=== PATIENT | female | born 1960 | race African-American/Black ===

== ENCOUNTER 2016-05-07 11:38 | Emergency (ER) | payer OTHER ==
[2016-05-07 11:56] LABS: ER CBC TAT 0 Hrs 07 Mins; HEMOGLOBIN 10.9 g/dL (12.0-16.0); MEAN CORPUS HGB CONC 31.3 g/dL (32.0-36.0); MEAN CORPUSCULAR HEMOGLOB 27.3 pg (26.0-34.0); MEAN PLATELET VOLUME 9.3 fL (9.2-13.0); RBC DISTRIBUTION WIDTH 15.6 % (12.0-16.0); RED CELL COUNT 3.99 10/6/uL (4.0-5.6); WHITE BLOOD CELLS 9.7 10/3/uL (4.5-10.5)
[2016-05-07 12:01] LABS: HEMATOCRIT 34.8 % (36.0-48.0); MANUAL DIFF YES %; MEAN CORPUSCULAR VOLUME 87.2 fL (80-100); PLATELET COUNT 80 10/3/uL (150-400)
[2016-05-07 12:13] LABS: ALBUMIN 2.4 G/DL (3.5-5.0); BUN (BLOOD UREA NITROGEN) 9 MG/DL (6-23); CHLORIDE, SERUM 100 MMOL/L (96-112); CO2 (CARBON DIOXIDE) 29 MMOL/L (24-34); CPK 60 U/L (0-200); CREATININE 1.13 MG/DL (0.55-1.02); GFR AFRICAN AMERICAN 64 ML/MIN (>=60); GFR NON AFRICAN AMERICAN 55 ML/MIN (>=60); POTASSIUM, SERUM 3.6 MMOL/L (3.5-5.3); SGPT(ALT) 30 U/L (5-65); SODIUM, SERUM 139 MMOL/L (135-148)
[2016-05-07 12:15] LABS: A/G RATIO 0.6 (0.7-1.9); ALKALINE PHOSPHATASE 78 U/L (45-117); CALCIUM, SERUM 7.6 MG/DL (8.5-10.4); GLOBULIN 4.1 G/DL (2.5-4.1); GLUCOSE, SERUM 161 MG/DL (60-99); SGOT(AST) 38 U/L (5-40); TOTAL BILIRUBIN 1.4 MG/DL (0-1.2); TOTAL PROTEIN 6.5 G/DL (6.0-8.5)
[2016-05-07 12:20] LABS: BAND NEUTROPHILS 25 %; EOSINOPHILS 1 %; ER DIFF TAT 0 Hrs 31 Mins; IMMATURE GRANS ABSOLUTE (CALC) 0.68 10/3/uL (0.0-0.11); LYMPHOCYTES 5 %; LYMPHOCYTES ABSOLUTE (CALC) 0.49 10/3/uL (0.67-4.30); METAMYELOCYTES 5 %; MYELOCYTES 2 %; NEUTROPHILS ABSOLUTE (CALC) 8.44 10/3/uL (2.02-8.40); PLATELET ESTIMATE DEC (ADEQUATE); SEGMENTED NEUTROPHIL (0) 62 %; TOTAL NUCLEATED CELLS 100
[2016-05-07 12:21] LABS: RBC MORPHOLOGY NORM (NORMAL)
[2016-05-07 14:15] LABS: ASCORBIC ACID (UR NOT ORDER) 40 (NEG); BILIRUBIN, URINE NEGATIVE (NEG); ER URINALYSIS TAT 0 Hrs 09 Mins; KETONE, URINE NEGATIVE (NEG); LEUKOCYTE ESTERASE(NOT OR NEG (NEG); NITRITE (URINE) NEG (NEG); WBC (NOT ORDERED) (RFLEX) 1 (0-5)
[2016-07-14] MEDS ORDERED: XARELTO20 MG PO (13:47)
== END 2016-05-07 15:29 | disposition home or self-care (01) ==
LOC: ER 11:38
PROVIDERS: Emergency Medicine
DX: D69.6 Thrombocytopenia, unspecified (principal); I10 Essential (primary) hypertension; E11.9 Type 2 diabetes mellitus without complications; T45.1X5A Adverse effect of antineoplastic and immunosuppressive drugs, initial encounter; Z87.891 Personal history of nicotine dependence; Z91.041 Radiographic dye allergy status
CPT/HCPCS: 71010; 80053; 81001; 82550; 83690; 85025; 96374; 96375; 99284; J1170; J2405

== ENCOUNTER 2016-05-09 02:48 | Emergency (ER) | payer OTHER ==
[2016-05-09 03:04] LABS: BASOPHILS 0.2 %; BASOPHILS ABSOLUTE 0.01 10/3/uL (0.0-0.16); EOSINOPHILS 1.7 %; EOSINOPHILS ABSOLUTE 0.07 10/3/uL (0.0-0.53); ER CBC TAT 0 Hrs 07 MinsNP; HEMATOCRIT 36.4 % (36.0-48.0); HEMOGLOBIN 11.8 g/dL (12.0-16.0); IMMATURE GRANULOCYTES 1.5 %; IMMATURE GRANULOCYTES ABSOLUTE 0.06 10/3/uL (0.0-0.11); LYMPHOCYTES 5.9 %; LYMPHOCYTES ABSOLUTE 0.24 10/3/uL (0.67-4.30); MANUAL DIFF NO %; MEAN CORPUS HGB CONC 32.4 g/dL (32.0-36.0); MEAN CORPUSCULAR HEMOGLOB 27.9 pg (26.0-34.0); MEAN CORPUSCULAR VOLUME 86.1 fL (80-100); MEAN PLATELET VOLUME 10.6 fL (9.2-13.0); MONOCYTES 0.7 %; MONOCYTES ABSOLUTE 0.03 10/3/uL (0.21-1.20); NEUTROPHILS ABSOLUTE 3.67 10/3/uL (2.02-8.40); PLATELET COUNT 63 10/3/uL (150-400); RBC DISTRIBUTION WIDTH 15.2 % (12.0-16.0); RED CELL COUNT 4.23 10/6/uL (4.0-5.6); WHITE BLOOD CELLS 4.1 10/3/uL (4.5-10.5)
[2016-05-09 03:10] LABS: INTERNATIONAL NORMAL RATI 1.1 UNITS (-); PARTIAL THROMBO TIME 34.7 SEC (22.5-37.2)
[2016-05-09 03:19] LABS: BUN (BLOOD UREA NITROGEN) 11 MG/DL (6-23); CALCIUM, SERUM 7.4 MG/DL (8.5-10.4); CHEST PAIN PROFILE TAT 0 Hrs 22 Mins; CHLORIDE, SERUM 100 MMOL/L (96-112); CO2 (CARBON DIOXIDE) 30 MMOL/L (24-34); CREATININE 0.87 MG/DL (0.55-1.02); GFR AFRICAN AMERICAN 88 ML/MIN (>=60); GFR NON AFRICAN AMERICAN 76 ML/MIN (>=60); GLUCOSE, SERUM 143 MG/DL (60-99); POTASSIUM, SERUM 3.6 MMOL/L (3.5-5.3); SODIUM, SERUM 138 MMOL/L (135-148); TROPONIN I <0.02 NG/ML (<0.05)
[2016-05-09 03:34] LABS: BAND NEUTROPHILS 27 %; ER DIFF TAT 0 Hrs 37 Mins; IMMATURE GRANS ABSOLUTE (CALC) 0.08 10/3/uL (0.0-0.11); LYMPHOCYTES 4 %; LYMPHOCYTES ABSOLUTE (CALC) 0.16 10/3/uL (0.67-4.30); METAMYELOCYTES 2 %; MONOCYTES 2 %; MONOCYTES ABSOLUTE (CALC) 0.08 10/3/uL (0.21-1.20); NEUTROPHILS ABSOLUTE (CALC) 3.77 10/3/uL (2.02-8.40); PLATELET ESTIMATE DEC (ADEQUATE); RBC MORPHOLOGY NORM (NORMAL); SEGMENTED NEUTROPHIL (0) 65 %; TOTAL NUCLEATED CELLS 100
[2016-07-14] MEDS ORDERED: XARELTO20 MG PO (13:47)
== END 2016-05-09 05:38 | disposition home or self-care (01) ==
LOC: ER 02:48
PROVIDERS: Physician Assistant
DX: G89.3 Neoplasm related pain (acute) (chronic) (principal); D49.9 Neoplasm of unspecified behavior of unspecified site; R11.2 Nausea with vomiting, unspecified; E11.9 Type 2 diabetes mellitus without complications; I10 Essential (primary) hypertension
CPT/HCPCS: 71010; 80048; 83735; 84484; 85025; 85610; 85730; 93005; 96374; 96375; 99284; J1170; J2405

== ENCOUNTER 2016-05-31 19:33 | Emergency (ER) | payer OTHER ==
[2016-05-31 21:15] LABS: BASOPHILS 0.1 %; BASOPHILS ABSOLUTE 0.01 10/3/uL (0.0-0.16); EOSINOPHILS 0.7 %; EOSINOPHILS ABSOLUTE 0.06 10/3/uL (0.0-0.53); HEMOGLOBIN 10.1 g/dL (12.0-16.0); LYMPHOCYTES 3.5 %; LYMPHOCYTES ABSOLUTE 0.31 10/3/uL (0.67-4.30); MEAN CORPUS HGB CONC 32.3 g/dL (32.0-36.0); MEAN CORPUSCULAR VOLUME 86.7 fL (80-100); MEAN PLATELET VOLUME 9.8 fL (9.2-13.0); MONOCYTES 1.9 %; MONOCYTES ABSOLUTE 0.17 10/3/uL (0.21-1.20); NEUTROPHILS 74.8 %; NEUTROPHILS ABSOLUTE 6.69 10/3/uL (2.02-8.40); RED CELL COUNT 3.61 10/6/uL (4.0-5.6)
[2016-05-31 21:17] LABS: ER CBC TAT 0 Hrs 05 Mins; HEMATOCRIT 31.3 % (36.0-48.0); MANUAL DIFF NO %; PLATELET COUNT 93 10/3/uL (150-400); RBC DISTRIBUTION WIDTH 19.1 % (12.0-16.0); WHITE BLOOD CELLS 8.9 10/3/uL (4.5-10.5)
[2016-05-31 21:25] LABS: INFLUENZA A SCREEN NEGATIVE (NEGATIVE); INFLUENZA B SCREEN NEGATIVE (NEGATIVE)
[2016-05-31 21:30] LABS: BUN (BLOOD UREA NITROGEN) 11 MG/DL (6-23); CALCIUM, SERUM 7.9 MG/DL (8.5-10.4); CHLORIDE, SERUM 101 MMOL/L (96-112); CO2 (CARBON DIOXIDE) 29 MMOL/L (24-34); CREATININE 1.09 MG/DL (0.55-1.02); GFR AFRICAN AMERICAN 67 ML/MIN (>=60); GFR NON AFRICAN AMERICAN 58 ML/MIN (>=60); GLUCOSE, SERUM 171 MG/DL (60-99); POTASSIUM, SERUM 3.4 MMOL/L (3.5-5.3); SGOT(AST) 63 U/L (5-40); SGPT(ALT) 43 U/L (5-65); SODIUM, SERUM 140 MMOL/L (135-148); TOTAL BILIRUBIN 1.2 MG/DL (0-1.2); TOTAL PROTEIN 6.5 G/DL (6.0-8.5)
[2016-05-31 21:31] LABS: A/G RATIO 0.8 (0.7-1.9); ALBUMIN 2.9 G/DL (3.5-5.0); ALKALINE PHOSPHATASE 100 U/L (45-117); GLOBULIN 3.6 G/DL (2.5-4.1)
[2016-05-31 21:40] LABS: ANISOCYTOSIS 1+ (5-10/OIF) (0-5/OIF); BAND NEUTROPHILS 19 %; EOSINOPHILS 2 %; EOSINOPHILS ABSOLUTE (CALC) 0.18 10/3/uL (0.0-0.53); ER DIFF TAT 0 Hrs 28 Mins; IMMATURE GRANS ABSOLUTE (CALC) 0.09 10/3/uL (0.0-0.11); LYMPHOCYTES 1 %; LYMPHOCYTES ABSOLUTE (CALC) 0.09 10/3/uL (0.67-4.30); METAMYELOCYTES 1 %; NEUTROPHILS ABSOLUTE (CALC) 8.54 10/3/uL (2.02-8.40); PLATELET ESTIMATE SLT DEC (ADEQUATE); SEGMENTED NEUTROPHIL (0) 77 %; TOTAL NUCLEATED CELLS 100
[2016-05-31 22:12] LABS: PROCALCITONIN 0.83 ng/mL (<0.5)
[2016-07-14] MEDS ORDERED: XARELTO20 MG PO (13:47)
== END 2016-05-31 23:37 | disposition home or self-care (01) ==
LOC: ER 19:33
PROVIDERS: Nurse Practitioner
DX: M79.1 Myalgia (principal); E11.9 Type 2 diabetes mellitus without complications; Z87.891 Personal history of nicotine dependence; Z91.041 Radiographic dye allergy status
CPT/HCPCS: 71020; 80053; 81001; 83605; 84145; 85025; 87040; 87804; 96372; 99284; J1170; J2550

== ENCOUNTER 2016-07-14 14:05 | Inpatient (IN) | payer OTHER ==
--- NOTE | ~2016-07-14 | DS ---
Discharge Summary [facility] [address] [place]. [address] NAME: NADEEM FU : 64 STATUS : DIS IN PAT#: [id number] AGE: 56 ADM/REG DATE : 07/14/16 MR#: [id number] REPORT SERV DATE: 07/22/16 DICTATED BY: LELAND MARSHALL II DATE: 07/21/16 REPORT STATUS : Draft TRANSCRIBED BY: MODL DATE: 07/21/16 ADMISSION DATE: 07/14/2016 DISCHARGE DATE: 07/21/2016 DISCHARGE DIAGNOSES: 1. Metastatic carcinoma of unknown primary with brain metastases. 2. 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 3. Left hemiparesis with weakness and debility secondary to brain metastases. 4. Diabetes mellitus type 2. 5. Hypertension. 6. Morbid obesity. 7. Electrolyte abnormalities. CONSULTS: 1. Bong Samson M.D. with [facility]. 2. Ed Mei M.D. with [facility]. BRIEF HISTORY OF PRESENT ILLNESS: The patient is a 56-year-old female with the above history, who presented to [facility] due to falling, weakness, altered mental status. For detailed history and physical examination, please see Dr. Jaswinder Mcgrath's note from 07/14/2016. HOSPITAL COURSE: After admission, the patient had a CT of the brain done which showed bilateral metastases of the cerebral hemispheres. Posterior fossa, brain stem spared with some mild mass effect and mild sycjt-bz-ksje ventricular shift. Subsequent MRI showed multiple metastases associated with some degree of ventricular shift, there is nmqrp-yd-rxxe shift and no entrapment hydrocephalus noted. Given the progression to brain metastases Dr. Samson did not think the patient was a candidate for second-line therapy at this moment, but recommended whole brain radiation, so Dr. Mei was consulted. The patient has received 2 treatments of [address] Samson, he would like to see if the patient responded at all to whole-brain radiation. If her disease improves or stabilizes he may consider compassionate care Opdivo upon followup. Overall, the patient clinically has improved with steroids and physical therapy. She is ambulating with assistance and is otherwise clinically stable. The patient was originally considering going for rehab; however, she has adequate support at home and wishes to go home with home health. In the event, no further chemotherapy is recommended. She would need to go on hospice, but Case Management is helping to arrange home health. Currently, stable for discharge. DISCHARGE MEDICATIONS: 1. Norvasc 10 mg p.o. daily. 2. Decadron 4 mg p.o. t.i.d. 3. Folic acid 1 mg p.o. daily. 4. Lisinopril 20 mg p.o. daily. 5. Protonix 40 mg p.o. b.i.d. 6. Xarelto 20 mg p.o. daily. Discharge Summary [address] [address] [facility] [place] [address] NAME: NADEEM FU : 64 STATUS : DIS IN PAT#: [id number] AGE: 56 ADM/REG DATE : 07/14/16 MR#: [id number] REPORT SERV DATE: 07/22/16 DICTATED BY: LELAND MARSHALL II DATE: 07/21/16 REPORT STATUS : Draft TRANSCRIBED BY: DRAKE DATE: 07/21/16 DISCHARGE INSTRUCTIONS: The patient will follow with Dr. Samson in two weeks. Otherwise, we will continue whole-brain radiation. DICTATED BY: MD BISHNU Levy II/DRAKE Leland Marshall II, MD / [id number] CC: Leland Marshall II, MD
--- NOTE | ~2016-07-14 | CONSULT ---
Radiation Oncology Consult [id number] [place]. 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 HISTORY OF PRESENT ILLNESS: This is a 56-year-old female, known to us for a right paratracheal mass with multiple pulmonary nodules, had recently completed palliative radiation therapy for SVC syndrome. The patient was treated 04/12/2016-04/25/2016:30 Gy in 10 fractions to the neck mass and paratracheal nodes. The patient was last seen in the office on 06/28/2015, for postradiation followup. She has had improvement in her edema and breathing but continued with hoarseness and shortness of breath. The patient has had several falls along with left-sided weakness and had fallen going to the restroom, which prompted EMS, called by the patient's mother. The patient denied any headaches, seizure activity, or any injuries. The patient underwent imaging showing multiple brain metastases with edema. She is currently prescribed dexamethasone 4 mg every six hours. Radiation Oncology was consulted for consideration of palliative whole brain radiation therapy. The patient was brought via stretcher from the hospital room and evaluated in the department along with [facility] for treatment planning. ALLERGIES: NO KNOWN DRUG ALLERGIES. MEDICATIONS: See 04/18/2016, but currently dexamethasone 4 mg every six hours by mouth including sliding-scale insulin PPI. PAST MEDICAL HISTORY: Stage IV cancer as above with SVC syndrome, thrombus, and recent diagnosis of brain metastases. Diabetes, obesity, history of gallstones, hypertension, and tobacco abuse. SOCIAL HISTORY: Had worked as a internet and e business project manager. Did smoke from age 25 to 55, but quit prior diagnosis. Denied any alcohol or illicit drug use. FAMILY HISTORY: Unchanged since original consultation. Noncontributory. PHYSICAL EXAMINATION: GENERAL: Large, female, in stretcher, continues with mild SVC fullness. HEENT: Voice with hoarseness, no change. Bilateral pupils are equal. Extraocular movements are intact. Alert and oriented x3. EXTREMITIES: Moves all extremities. Bilateral upper and lower extremities with edema. LUNGS: Bilateral lung stewart with wheeze and decreased at the bases. Normal respiratory effort and expansion, on oxygen therapy via nasal cannula. ABDOMEN: Soft, nontender, without organomegaly. SKIN: No visible rashes or jaundice in exposed areas. Sensory and motor is intact. She answers questions appropriately. Radiation Oncology Consult [address] [address] NAME: NADEEM FU : 64 STATUS : ADM IN [facility]#: [id number] AGE: 56 ADM/REG DATE : 07/14/16 MR#: [id number] REPORT SERV DATE: 07/17/16 DICTATED BY: KAMRYN MEI DATE: 07/17/16 REPORT STATUS : Draft TRANSCRIBED BY: DRAKE DATE: 07/17/16 IMPRESSION AND PLAN: 56-year-old with a history of stage IV poorly differentiated carcinoma with multiple brain metastases and srfta-rb-iser shift from edema. Given her performance status and multiple brain metastases, plan for a palliative whole brain radiation therapy and plan for 30 Gy in 10 fractions. The patient was SIM today for treatment planning. The patient will start treatment on Saturday this week and will need to continue her dexamethasone and PPI. This plan was formulated by Dr. Kamryn Mei. I appreciate the opportunity to participate in her care. DICTATED BY: MAYCOL Tubbs/DRAKE Kamryn Mei M.D. / [id number] CC: MD Bong Levy II, M.D. Subhash Virani, M.D. Jonathan T Whaley, MD
--- NOTE | ~2016-07-14 | HP ---
History And Physical [place] [address] [facility] [place]. [address] NAME: NADEEM FU : 64 STATUS : ADM IN PAT#: [id number] AGE: 56 ADM/REG DATE : 07/14/16 MR#: [id number] REPORT SERV DATE: 07/14/16 DICTATED BY: JASWINDER PASCUAL DATE: 07/14/16 REPORT STATUS : Draft TRANSCRIBED BY: MODL DATE: 07/14/16 DATE OF ADMISSION: 07/14/2016 CHIEF COMPLAINT: Falling, weak, altered mental status. HISTORY OF PRESENT ILLNESS: Obtained from the patient and mostly from the patient's family present at bedside as well as emergency room documents. There were limited prior medical records available to us to review. According to the information available, the patient is a pleasant 56-year-old black woman with history of diabetes type 2, hypertension, presently on no medication, at the end of February 2016, was diagnosed with superior vena cava syndrome with a CT scan of the chest and neck demonstrating a large right paratracheal mass with multiple pulmonary nodules, likely metastases. A CT-guided biopsy was done and showed metastatic poorly differentiated carcinoma of unknown origin. The patient was seen by Radiation Oncology who had performed radiation to the right paratracheal mass with apparently improvement in her symptoms of superior vena cava syndrome. The patient subsequently, according to the family, was started on chemotherapy that supposedly was discontinued 2 or 3 weeks ago because of "it is not working". We do not have any other information regarding her oncologic workup or status. She had apparently not been diagnosed previously with brain metastasis and a we can only assume that imaging was performed prior to starting the above treatments. Nevertheless the patient has been feeling weak and falling for several days, worse this morning, she lost her balance, very dizzy, hurting the right side of the chest, unable to stand on her own. The patient remembers only she was trying to get to the bathroom and she found herself on the ground where actually the daughter found her, uncertain exactly how long ago was she on the floor. Denies any head trauma or denies any incontinence, seizure-like activity reported. The patient was brought to our emergency room by EMS. In the emergency room, the patient was investigated and a CT scan of the head/brain was performed showing multiple brain metastasis with apparently increased edema. There is no formal report yet regarding the above imaging. Because of the above presentation and findings and because of her past history, the patient was referred to the Hospitalist Service for further management and evaluation. The patient denies any headaches. Denies any phono or photophobia. Denies URI-like symptoms. Denies any recent travel outside the area or contact with persons traveling outside the area. Denies any recent contact with the persons who had significant illnesses, infections, or travel. Denies any particular pain. Stated that her facial and neck swelling actually improved. She had her radiation therapy in March 2016. No recent weight loss or weight gain. She was taken from her blood pressure and diabetes medication as "she did not need it any longer." PAST MEDICAL HISTORY: Significant for diabetes and hypertension. Significant for obesity. Significant for tobacco abuse, she quit in February 2016. Significant for superior vena cava syndrome with apparently carcinoma metastatic of unknown origin with the right paratracheal mass and pulmonary nodules by report in March 2016. PAST SURGICAL HISTORY: Significant for . FAMILY HISTORY: Significant for hypertension. History And Physical [address] [address] NAME: NADEEM FU : 64 STATUS : ADM IN [facility]#: [id number] AGE: 56 ADM/REG DATE : 07/14/16 MR#: [id number] REPORT SERV DATE: 07/14/16 DICTATED BY: JASWINDER PASCUAL DATE: 07/14/16 REPORT STATUS : Draft TRANSCRIBED BY: DRAKE DATE: 07/14/16 SOCIAL HISTORY: The patient is single. Used to work as a elementary school science teacher. She used to smoke for 30 years, quit in February 2016. Denies alcohol abuse. Denies illicit recreational drug abuse. ALLERGIES: ALLERGIES TO IV CONTRAST DYE. HOME MEDICATIONS: Presently on Xarelto 20 mg p.o. daily. Please note the previous medications, lisinopril and metformin were not on her medication list any longer. REVIEW OF SYSTEMS: As per H and P, otherwise negative in all review of systems. Please note, that the comprehensive review of system was obtained and pertinent positives were including in the H and P. PHYSICAL EXAMINATION: GENERAL: Pleasant, cooperant, but pale, obviously ill-appearing. VITAL SIGNS: Upon arrival in the emergency room, blood pressure 164/103, pulse 74, respiratory rate 20, temperature 97.8, and oxygen saturation 96% in room air. HEENT: Pupils equal, round, and reactive to light. Extraocular movements intact. Slight exophthalmos. Throat, mild erythema and no exudate. No signs of tenderness. NECK: Supple. No JVD. No bruits. No thyromegaly. Question bilateral small lymphadenopathy. LUNGS: Bilateral air entry. Distant breath sounds with few bibasilar crackles. No wheezing. Good airway movement. HEART: Positive S1, S2. Regular rate and rhythm. Positive soft mitral regurgitation murmur at the apex. PMI nondisplaced by palpation. ABDOMEN: Positive bowel sounds. Soft, obese, nontender, no guarding, and no hepatosplenomegaly. EXTREMITIES: Decreased range of motion. No clubbing. No cyanosis. No edema. +2 pulses bilaterally. No calf tenderness. NEUROLOGIC: Alert and oriented x3 and grossly nonfocal. Slightly drowsy but easily arousable and oriented with a flat affect. Not anxious and grossly nonfocal. Cranial nerves 2 through 12 grossly intact. Motor strength 5/5 symmetrical bilateral. Deep tendon reflexes 2/2 symmetrical bilaterally. BACK: With decreased range of motion. No focal localized tenderness. No CVA tenderness. SKIN: No bruises, no rashes, no lacerations. SIGNIFICANT LABORATORY DATA: CT scan of the head/brain by preliminary report from the emergency room showed multiple bilateral brain metastatic disease with some edema (no formal report yet available). Chest x-ray (personal reading) showed chronic interstitial changes "crowded" appearance with right mediastinal mass and apparent small bilateral lung nodules ? metastatic disease, no previous x-ray available for comparison. EKG (personal reading) shows normal sinus rhythm at 67. No acute ST elevation (low voltage QRS). Reported x-ray was the cervical spine and pelvis with no fractures or dislocations. Sodium 146, potassium 3.1, chloride 108, bicarb 33, BUN 9, and creatinine 1.03. Glucose 97. Calcium 9, magnesium 2.16. CK #1, 126, troponin I less than 0.02. White cell count 4.2, History And Physical [place] [facility] [place]. [address] NAME: NADEEM FU : 64 STATUS : ADM IN [facility]#: [id number] AGE: 56 ADM/REG DATE : 07/14/16 MR#: [id number] REPORT SERV DATE: 07/14/16 DICTATED BY: JASWINDER PASCUAL ION DATE: 07/14/16 REPORT STATUS : Draft TRANSCRIBED BY: MODL DATE: 07/14/16 hemoglobin 9.8, and platelet count 157. INR 1.2. ASSESSMENT AND PLAN AND PROBLEM LIST: The patient is a pleasant 56-year-old black woman with known history of metastatic CA apparently of unknown origin with known superior vena cava syndrome, now with apparently newly found metastatic brain disease. IMPRESSION: 1. Neurologic problem. a. Brain metastatic disease with possible some cerebral edema. b. Generalized weakness and recurrent falls. c. Mild encephalopathy likely secondary to brain metastatic disease. Mild confusion still present. For all the above, we are going to admit on the Hospitalist Service on the telemetry setting with neurologic checks. We are going to start IV Decadron. We are going to provide IV Keppra and continue to monitor clinically. 2. Hematologic and Oncologic problem. a. Stage IV metastatic carcinoma of unknown origin. b. Right paratracheal mediastinal mass with bilateral lung nodules, likely metastatic disease. c. Superior vena cava syndrome. d. Anemia multifactorial. e. Chronic anticoagulation on Xarelto. f. Apparently no chemotherapy for the last 2 or 4 weeks as per the patient and family (? switched to palliative care). For all the above, the patient has been admitted on the Hospitalist Service. We are going to obtain Oncology consultation with Dr. Bong Samson, her oncologist and continue to follow up with his recommendations. We are going to try to obtain old records from the patient's oncologist. Monitor H and H, continue anticoagulation for now with Xarelto. g. Hypertension. Essential hypertension, presently on no medications. We are going to provide p.r.n. IV hydralazine. h. Endocrinologic problem. I. Diabetes type 2, not insulin dependent, without complications, presently on no medications. We are going to use sliding scale especially after starting IV Decadron. II.Morbid obesity. III. Tobacco dependency disorder. The patient quit smoking in February 2016. Continue to encourage smoking cessation status. Provided support. IV.Hypokalemia and electrolyte abnormalities. Replace potassium. Check phosphorus. Monitor and correct as indicated. V. Do not resuscitate/DNR discussion with the patient's family and to some extent with the patient herself. Questions were answered in full. The patient's family and her immediate family to get involved and decide regarding the code status. Presently, the patient remains full code as it is by now. 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 Questions were answered in full. Please note, also the written H and P, and written orders and instructions. History And Physical [address] [address] NAME: NADEEM FU : 64 STATUS : ADM IN PAT#: [id number] AGE: 56 ADM/REG DATE : 07/14/16 MR#: [id number] REPORT SERV DATE: 07/14/16 DICTATED BY: JASWINDER PASCUAL DATE: 07/14/16 REPORT STATUS : Draft TRANSCRIBED BY: DRAKE DATE: 07/14/16 ONCOLOGIST: Bong Samson M.D. PRIMARY CARE PROVIDER: [facility]. SINTER MACHINE OPERATOR: Dr. Anahi Oreilly at [facility]. RF/DEEDEEL Jaswinder Pascual M.D. / [id number] CC: Giorgi Novak M.D.
[2016-07-14 11:54] LABS: BASOPHILS 0.2 %; BASOPHILS ABSOLUTE 0.01 10/3/uL (0.0-0.16); EOSINOPHILS 0.9 %; EOSINOPHILS ABSOLUTE 0.04 10/3/uL (0.0-0.53); HEMATOCRIT 31.4 % (36.0-48.0); HEMOGLOBIN 9.8 g/dL (12.0-16.0); IMMATURE GRANULOCYTES 0.7 %; IMMATURE GRANULOCYTES ABSOLUTE 0.03 10/3/uL (0.0-0.11); LYMPHOCYTES 18.2 %; LYMPHOCYTES ABSOLUTE 0.77 10/3/uL (0.67-4.30); MANUAL DIFF NO %; MEAN CORPUS HGB CONC 31.2 g/dL (32.0-36.0); MEAN PLATELET VOLUME 8.9 fL (9.2-13.0); MONOCYTES 17.1 %; MONOCYTES ABSOLUTE 0.72 10/3/uL (0.21-1.20); NEUTROPHILS 62.9 %; NEUTROPHILS ABSOLUTE 2.65 10/3/uL (2.02-8.40); PLATELET COUNT 157 10/3/uL (150-400); RBC DISTRIBUTION WIDTH 20.7 % (12.0-16.0); RED CELL COUNT 3.27 10/6/uL (4.0-5.6); WHITE BLOOD CELLS 4.2 10/3/uL (4.5-10.5)
[2016-07-14 12:02] LABS: INTERNATIONAL NORMAL RATI 1.2 UNITS (-); PARTIAL THROMBO TIME 32.9 SEC (22.5-37.2); PROTIME (NOT ORD) 14.7 SEC (12.0-14.5)
[2016-07-14 12:10] LABS: BUN (BLOOD UREA NITROGEN) 9 MG/DL (6-23); CHEST PAIN PROFILE TAT 0 Hrs 20 Mins; CHLORIDE, SERUM 108 MMOL/L (96-112); CO2 (CARBON DIOXIDE) 33 MMOL/L (24-34); CREATININE 1.03 MG/DL (0.55-1.02); GFR AFRICAN AMERICAN 71 ML/MIN (>=60); GFR NON AFRICAN AMERICAN 62 ML/MIN (>=60); POTASSIUM, SERUM 3.1 MMOL/L (3.5-5.3); SODIUM, SERUM 146 MMOL/L (135-148); TROPONIN I <0.02 NG/ML (<0.05)
[2016-07-14 12:11] LABS: CPK 126 U/L (0-200); GLUCOSE, SERUM 97 MG/DL (60-99)
[~2016-07-14 14:05] MED LIST: XARELTO20 MG PO
[2016-07-14 19:53] LABS: ALBUMIN 3.2 G/DL (3.5-5.0); ALKALINE PHOSPHATASE 85 U/L (45-117); DIRECT BILIRUBIN 0.4 MG/DL (0.0-0.4); INDIRECT BILIRUBIN(NOT ORDER) 1.7 MG/DL (0.1-0.9); PHOSPHORUS, SERUM 3.4 MG/DL (2.5-4.5); SGOT(AST) 38 U/L (5-40); SGPT(ALT) 29 U/L (5-65); TOTAL BILIRUBIN 2.1 MG/DL (0-1.2); TOTAL PROTEIN 6.7 G/DL (6.0-8.5)
[2016-07-15 11:56] LABS: BASOPHILS 0 %; EOSINOPHILS 0 %; HEMATOCRIT 34.5 % (36.0-48.0); HEMOGLOBIN 10.8 g/dL (12.0-16.0); IMMATURE GRANULOCYTES 0.5 %; IMMATURE GRANULOCYTES ABSOLUTE 0.02 10/3/uL (0.0-0.11); LYMPHOCYTES 11.6 %; LYMPHOCYTES ABSOLUTE 0.48 10/3/uL (0.67-4.30); MANUAL DIFF NO %; MEAN CORPUS HGB CONC 31.3 g/dL (32.0-36.0); MEAN CORPUSCULAR HEMOGLOB 29.9 pg (26.0-34.0); MEAN CORPUSCULAR VOLUME 95.6 fL (80-100); MEAN PLATELET VOLUME 9.4 fL (9.2-13.0); MONOCYTES 5.1 %; MONOCYTES ABSOLUTE 0.21 10/3/uL (0.21-1.20); NEUTROPHILS 82.8 %; NEUTROPHILS ABSOLUTE 3.43 10/3/uL (2.02-8.40); PLATELET COUNT 184 10/3/uL (150-400); RBC DISTRIBUTION WIDTH 19.7 % (12.0-16.0); RED CELL COUNT 3.61 10/6/uL (4.0-5.6); WHITE BLOOD CELLS 4.1 10/3/uL (4.5-10.5)
[2016-07-15 12:14] LABS: ALBUMIN 2.9 G/DL (3.5-5.0); ALKALINE PHOSPHATASE 88 U/L (45-117); BUN (BLOOD UREA NITROGEN) 10 MG/DL (6-23); CALCIUM, SERUM 9.1 MG/DL (8.5-10.4); CHLORIDE, SERUM 107 MMOL/L (96-112); CO2 (CARBON DIOXIDE) 30 MMOL/L (24-34); CREATININE 0.86 MG/DL (0.55-1.02); DIRECT BILIRUBIN 0.3 MG/DL (0.0-0.4); GFR AFRICAN AMERICAN 89 ML/MIN (>=60); GFR NON AFRICAN AMERICAN 77 ML/MIN (>=60); INDIRECT BILIRUBIN(NOT ORDER) 1.6 MG/DL (0.1-0.9); PHOSPHORUS, SERUM 3.9 MG/DL (2.5-4.5); SGOT(AST) 29 U/L (5-40); SGPT(ALT) 29 U/L (5-65); SODIUM, SERUM 143 MMOL/L (135-148); TOTAL BILIRUBIN 1.9 MG/DL (0-1.2); TOTAL PROTEIN 6.9 G/DL (6.0-8.5); TROPONIN I <0.02 NG/ML (<0.05)
[2016-07-15 12:15] LABS: CK-MB 1.2 NG/ML; CPK 82 U/L (0-200); GLUCOSE, SERUM 150 MG/DL (60-99); TRIGLYCERIDE 89 MG/DL (< 150)
[2016-07-16 05:33] LABS: BASOPHILS 0 %; EOSINOPHILS 0 %; HEMATOCRIT 32.3 % (36.0-48.0); HEMOGLOBIN 10.2 g/dL (12.0-16.0); IMMATURE GRANULOCYTES 0.9 %; IMMATURE GRANULOCYTES ABSOLUTE 0.05 10/3/uL (0.0-0.11); LYMPHOCYTES 8.1 %; LYMPHOCYTES ABSOLUTE 0.47 10/3/uL (0.67-4.30); MANUAL DIFF NO %; MEAN CORPUS HGB CONC 31.6 g/dL (32.0-36.0); MEAN CORPUSCULAR HEMOGLOB 30.1 pg (26.0-34.0); MEAN CORPUSCULAR VOLUME 95.3 fL (80-100); MEAN PLATELET VOLUME 10.2 fL (9.2-13.0); MONOCYTES 8.4 %; MONOCYTES ABSOLUTE 0.49 10/3/uL (0.21-1.20); NEUTROPHILS 82.6 %; PLATELET COUNT 198 10/3/uL (150-400); RBC DISTRIBUTION WIDTH 20.4 % (12.0-16.0); RED CELL COUNT 3.39 10/6/uL (4.0-5.6); WHITE BLOOD CELLS 5.8 10/3/uL (4.5-10.5)
[2016-07-16 05:50] LABS: CHLORIDE, SERUM 108 MMOL/L (96-112); CO2 (CARBON DIOXIDE) 27 MMOL/L (24-34); CREATININE 1.01 MG/DL (0.55-1.02); GFR AFRICAN AMERICAN 73 ML/MIN (>=60); GFR NON AFRICAN AMERICAN 63 ML/MIN (>=60); SODIUM, SERUM 143 MMOL/L (135-148)
[2016-07-16 05:51] LABS: BUN (BLOOD UREA NITROGEN) 16 MG/DL (6-23); GLUCOSE, SERUM 184 MG/DL (60-99); POTASSIUM, SERUM 4.3 MMOL/L (3.5-5.3)
[2016-07-17 07:33] LABS: BASOPHILS 0 %; EOSINOPHILS 0 %; HEMATOCRIT 33.3 % (36.0-48.0); HEMOGLOBIN 10.3 g/dL (12.0-16.0); IMMATURE GRANULOCYTES 0.9 %; IMMATURE GRANULOCYTES ABSOLUTE 0.05 10/3/uL (0.0-0.11); LYMPHOCYTES 11.4 %; LYMPHOCYTES ABSOLUTE 0.63 10/3/uL (0.67-4.30); MANUAL DIFF NO %; MEAN CORPUS HGB CONC 30.9 g/dL (32.0-36.0); MEAN CORPUSCULAR HEMOGLOB 29.8 pg (26.0-34.0); MEAN CORPUSCULAR VOLUME 96.2 fL (80-100); MONOCYTES 8.7 %; MONOCYTES ABSOLUTE 0.48 10/3/uL (0.21-1.20); NEUTROPHILS ABSOLUTE 4.36 10/3/uL (2.02-8.40); PLATELET COUNT 153 10/3/uL (150-400); RBC DISTRIBUTION WIDTH 20.2 % (12.0-16.0); RED CELL COUNT 3.46 10/6/uL (4.0-5.6); WHITE BLOOD CELLS 5.5 10/3/uL (4.5-10.5)
[2016-07-18 05:37] LABS: BASOPHILS 0.2 %; BASOPHILS ABSOLUTE 0.01 10/3/uL (0.0-0.16); EOSINOPHILS 0 %; HEMOGLOBIN 10.5 g/dL (12.0-16.0); IMMATURE GRANULOCYTES 1.5 %; IMMATURE GRANULOCYTES ABSOLUTE 0.09 10/3/uL (0.0-0.11); LYMPHOCYTES 8.8 %; LYMPHOCYTES ABSOLUTE 0.52 10/3/uL (0.67-4.30); MANUAL DIFF NO %; MEAN CORPUS HGB CONC 31.8 g/dL (32.0-36.0); MEAN CORPUSCULAR HEMOGLOB 29.9 pg (26.0-34.0); MEAN PLATELET VOLUME 9.8 fL (9.2-13.0); MONOCYTES ABSOLUTE 0.83 10/3/uL (0.21-1.20); NEUTROPHILS 75.5 %; NEUTROPHILS ABSOLUTE 4.49 10/3/uL (2.02-8.40); NUCLEATED RED BLOOD CELLS 0.3 /100WBC (0-0); PLATELET COUNT 182 10/3/uL (150-400); RED CELL COUNT 3.51 10/6/uL (4.0-5.6); WHITE BLOOD CELLS 5.9 10/3/uL (4.5-10.5)
[2016-07-18 06:02] LABS: ANISOCYTOSIS 1+ (5-10/OIF) (0-5/OIF); PLATELET ESTIMATE ADQ (ADEQUATE)
[2016-07-21] MEDS ORDERED: DEX4 PO (14:57)
[2016-07-21] MEDS ORDERED: NORV10 PO (14:57)
[2016-07-21] MEDS ORDERED: FOLIC PO (14:58)
[2016-07-21] MEDS ORDERED: PRIN20 PO (14:58)
== END 2016-07-21 15:38 | disposition home or self-care (01) | DRG 54 ==
LOC: ER 14:05 → 4EA 15:35
PROVIDERS: Internal Medicine; Nurse Practitioner; Nurse Practitioner Adult Health
DX: C79.31 Secondary malignant neoplasm of brain (principal); G93.6 Cerebral edema; G93.40 Encephalopathy, unspecified; I82.210 Acute embolism and thrombosis of superior vena cava; I87.1 Compression of vein; Z68.41 Body mass index [BMI] 40.0-44.9, adult; C80.1 Malignant (primary) neoplasm, unspecified; Z51.5 Encounter for palliative care; Z79.01 Long term (current) use of anticoagulants; E11.9 Type 2 diabetes mellitus without complications; E66.01 Morbid (severe) obesity due to excess calories; F17.210 Nicotine dependence, cigarettes, uncomplicated; E87.6 Hypokalemia; Z66 Do not resuscitate; I10 Essential (primary) hypertension
CPT/HCPCS: 70450; 70551; 71010; 72125; 72170; 77280; 77290; 77307; 77334; 77336; 77412; 80048; 80069; 80076; 82550; 82553; 82962; 83735; 84100; 84443; 84478; 84484; 85025; 85610; 85730; 93005; 97116-GP; 97161-GP; 97166-GO; 99285; A9270-GY; J0360; J1953